=== PATIENT | female | born 2000 | race Caucasian/White ===

== ENCOUNTER 2021-05-29 17:47 | Emergency (ER) | payer OTHER ==
[2021-05-29 17:54] VITALS: BMI 18.6
[2021-05-29] MEDS ORDERED: SODIUM CHLORIDE 1,000 ML IV STA (18:17)
[2021-05-29 19:05] LABS: BASO % 0.2 % (0-2.0); EOS % 0.9 % (0-4.5); HEMATOCRIT 38.2 % (32.4-45.2); HEMOGLOBIN 13.1 GM/dL (10.7-15.3); LYMPH % 23.3 % (8-40); MCH 34.1 pg (25.7-33.7); MCHC 34.4 g/dl (32.0-36.0); MEAN CELL VOLUME 99.2 fl (80-96); MEAN PLT VOLUME 7.6 fl (7.5-11.1); MONO % 6.7 % (3.8-10.2); NEUT % 68.9 % (42.8-82.8); PH,URINE 8.5 (5.0-8.0); PLATELET COUNT 281 10^3/uL (134-434); RBC 3.85 M/mm3 (3.60-5.2); RDW 13.4 % (11.6-15.6); URINE APPEARANCE CLEAR; URINE BILIRUBIN NEGATIVE (NEGATIVE); URINE COLOR YELLOW; URINE GLUCOSE (UA) NEGATIVE (NEGATIVE); URINE KETONE NEGATIVE (NEGATIVE); URINE LEUK ESTERASE NEGATIVE (NEGATIVE); URINE NITRITE NEGATIVE (NEGATIVE); URINE PROTEIN TRACE (NEGATIVE); WHITE BLOOD COUNT 7.8 K/mm3 (4.0-10.0)
[2021-05-29 19:08] LABS: HCG,QUALITATIVE URINE Negative
[2021-05-29 19:25] LABS: ALBUMIN 4.1 g/dl (3.4-5.0); CALCIUM 8.6 mg/dL (8.5-10.1)
[2021-05-29 19:26] LABS: BLOOD UREA NITROGEN 12.7 mg/dL (7-18)
[2021-05-29 19:29] LABS: CREATININE 0.7 mg/dL (0.55-1.3)
[2021-05-29 19:30] LABS: BILIRUBIN,TOTAL 0.5 mg/dL (0.2-1); TOT PROT 7.3 g/dl (6.4-8.2)
[2021-05-29 22:01] VITALS: BP 100/68; PULSE 76; TEMP 98.5
== END 2021-05-29 22:02 | disposition home or self-care (01) ==
LOC: JER 17:47
PROC: 3E0337Z Introduction of Electrolytic and Water Balance Substance into Peripheral Vein, Percutaneous Approach (ICD-10-PCS; principal; 2021-05-29)
DX: R10.33 Periumbilical pain (principal)
CPT/HCPCS: 36415; 74177-TC; 80053; 81003; 83690; 84703; 85025; 99285-25; Q9967